=== PATIENT | female | born 1950 | race Caucasian/White ===

== ENCOUNTER → 2017-02-19 | Outpatient (CLI) | payer OTHER ==
[2016-07-21 21:11] VITALS: BP 125/70
[2017-02-19 11:07] LABS: BASOPHILS # (AUTO) 0.1 X10^3/uL (0.0-0.1); BASOPHILS % (AUTO) 1.2 % (0.2-1.0); EOSINOPHILS # (AUTO) 0.1 x10^3/uL (0.0-0.2); EOSINOPHILS % (AUTO) 1.3 % (0.9-2.9); HEMATOCRIT 41.5 % (36.0-47.0); HEMOGLOBIN 13.9 g/dL (12.0-16.0); LYMPHOCYTES # (AUTO) 2.5 X10^3/uL (1.3-2.9); LYMPHOCYTES % (AUTO) 26.2 % (21.0-51.0); MEAN CORPUSCULAR HEMOGLOBIN 29.5 pg (27.0-34.0); MEAN CORPUSCULAR HGB CONC 33.4 g/dL (33.0-35.0); MEAN CORPUSCULAR VOLUME 88.5 fL (80.0-100.0); MEAN PLATELET VOLUME 8.4 fL (7.4-11.0); MONOCYTES # (AUTO) 0.8 x10^3/uL (0.3-0.8); MONOCYTES % (AUTO) 8.2 % (0.0-13.0); NEUTROPHILS # (AUTO) 6.1 x10^3/uL (2.2-4.8); NEUTROPHILS % (AUTO) 63.1 % (42.0-75.0); PLATELET COUNT 295 X10^3/uL (150.0-450.0); RED BLOOD COUNT 4.69 X10^6/uL (3.5-5.4); RED CELL DISTRIBUTION WIDTH 14.1 % (11.6-16.5); WHITE BLOOD COUNT 9.7 X10^3/uL (3.6-10.0)
[2017-02-19 11:27] LABS: CREATININE,URINE 134.68 mg/dL (29-226); MICROALBUMIN,URINE 14.5 mg/L
[2017-02-19 11:44] LABS: ERYTHROCYTE SEDIMENTATION RATE 10 MM/HOUR (0-20)
[2017-02-19 12:26] LABS: ALANINE AMINOTRANSFERASE 24 Units/L (12-78); ALBUMIN 3.8 g/dL (3.4-5.0); ALKALINE PHOSPHATASE 65 Units/L (46-116); ASPARTATE AMINO TRANSFERASE 26 Units/L (15-37); BLOOD UREA NITROGEN 20 mg/dL (7-18); CALCIUM 9.4 mg/dL (8.5-10.1); CARBON DIOXIDE 27.8 mmol/L (21-32); CHLORIDE 105 mmol/L (98-107); CHOL/HDL RATIO 3.4 (0.0-5.0); CHOLESTEROL 154 mg/dL (0-200); CREATININE 1.02 mg/dL (0.55-1.02); GLUCOSE 83 mg/dL (65-99); HDL CHOLESTEROL 45 mg/dL (40-60); SODIUM 143 mmol/L (136-145); TRIGLYCERIDES 83 mg/dL (0-150); TSH (3RD GENERATION) 3.315 uIU/mL (0.358-3.74); eGFR BLACK RACES > 60 (>60); eGFR NON BLACK RACES 58 (>60)
== END ==
LOC: LAB 10:34
PROVIDERS: ATTEND Nurse Practitioner Family
DX: Z12.11 Encounter for screening for malignant neoplasm of colon (principal); Z79.899 Other long term (current) drug therapy; E78.4 Other hyperlipidemia
CPT/HCPCS: 36415; 80053; 80061; 82043; 82270; 84443; 85025; 85652

== ENCOUNTER 2017-02-24 17:14 | Inpatient (IN) | payer OTHER ==
--- NOTE | 2017-02-24 17:40 | DR.GENAD ---
HPI - PCP Primary Care Physician: Danii Schroeder - Complaint/Symptoms Chief Complaint Doctors Comments: Patient admits pain and swelling of the right lower extremity with ambulation. She states that she walks to visit her mom several times a day usuallly. Denies trauma or injury. Chief Complaint:: pt is c/o left leg pain behind her knee that started yesterday. - Source History Provided: Patient - Mode of Arrival Mode of Arrival: Ambulatory - Timing Onset of Chief Complaint: 02/23/17 <HERB MADISON - Last Filed: 02/24/17 17:34> PMH - PMH Past Medical History: Yes Past Medical History: Anxiety, Arthritis, COPD, Hypertension Past Surgical History: Yes Surgical History: , Hysterectomy, Tonsillectomy - Family History History of Family Medical Conditions: Yes Family Medical History: Diabetes Mellitus, Cancer, Heart Failure, Hypertension - Social History Does patient currently use any type of tobacco product: Yes Have you used tobacco products in the last 12 months: Yes Type of Tobacco Use: Cigarettes Does any household member use tobacco: No Alcohol Use: None Do you use any recreational Drugs:: No Lives With: Family Lives Where: Home - infectious screening In the last 2 months have you had wt loss of >10#?: NO Have you had fever, night sweats or hemotysis?: No Have you traveled outside the country in the last 6 months?: No Isolation: Standard <HERB MADISON - Last Filed: 02/24/17 17:34> ROS - Review of Systems Constitutional: No Symptoms Reported Eyes: No Symptoms Reported ENTM: No Symptoms Reported Respiratoy: No Symptoms Reported Cardiovascular: No Symptoms Reported Gastrointestinal/Abdominal: No Symptoms Reported Genitourinary: No Symptoms Reported Neurological: No Symptoms Reported Musculoskeletal: Leg (pain) Integumentary: Change in Color Hematologic/Lymphatic: No Symptoms Reported Endocrine: No Symptoms Reported Psychiatric: No Symptoms Reported All Other Systems: Reviewed and Negative <HERB MADISON - Last Filed: 02/24/17 17:34> PE - General Limitations: No Limitations General Appearance: Alert, In No Apparent Distress - Head Head Exam: Normal Inspection, Atraumatic - Eyes Eye exam: Normal Appearance, PERRL, EOMI - ENT ENT Exam: Normal Exam, Normal Oropharynx External Ear Exam: Normal External Inspection TM/Canal Exam: Bilateral Normal Nose Exam: Normal Nose Exam Mouth Exam: Normal Inspection Throat Exam: Normal Inspection - Neck Neck Exam: Normal Inspection - Chest Chest Inspection: Normal Inspection - Respiratory Respiratory Exam: Normal Lung Sounds Bilat Respiratory Exam: Bilateral Clear to Auscultation - Cardiovascular Cardiovascular Exam: Regular Rate, Normal Rhythm - Abdominal Exam Abdominal Exam: Normal Inspection Abdominal Tenderness: negative: RUQ, RLQ, LUQ, LLQ, Epigastrium, Suprapubic, Diffuse, Mild, Moderate, Severe, Other - Extremities Extremities Exam: Normal Inspection, Full ROM - Back Back Exam: Normal Inspection - Neurologic Neurological Exam: Alert, Oriented X3, CN II-XII Intact - Psychiatric Psychiatric Exam: Normal Affect, Depressed - Skin Skin Exam: Warm, Dry. negative: Intact <HERB MADISON - Last Filed: 02/24/17 17:34> ROR - Labs Reviewed Result Diagrams: 02/24/17 17:40 - XRAY XRAY Interpreted by: Radiologist (left popliteal dvt) <Linsey Carroll - Last Filed: 02/24/17 19:34> - Labs Reviewed Laboratory: WBC 11.7 X10^3/uL (3.6-10.0) H 02/24/17 17:40 RBC 4.45 X10^6/uL (3.5-5.4) 02/24/17 17:40 Hgb 12.9 g/dL (12.0-16.0) 02/24/17 17:40 Hct 39.2 % (36.0-47.0) 02/24/17 17:40 MCV 88.2 fL (80.0-100.0) 02/24/17 17:40 MCH 29.0 pg (27.0-34.0) 02/24/17 17:40 MCHC 32.8 g/dL (33.0-35.0) L 02/24/17 17:40 RDW 13.7 % (11.6-16.5) 02/24/17 17:40 Plt Count 217 X10^3/uL (150.0-450.0) 02/24/17 17:40 MPV 8.4 fL (7.4-11.0) 02/24/17 17:40 Neut % 73.5 % (42.0-75.0) 02/24/17 17:40 Lymph % 17.9 % (21.0-51.0) L 02/24/17 17:40 Pike % 6.8 % (0.0-13.0) 02/24/17 17:40 Eos % 1.2 % (0.9-2.9) 02/24/17 17:40 Baso % 0.6 % (0.2-1.0) 02/24/17 17:40 Neut # 8.6 x10^3/uL (2.2-4.8) H 02/24/17 17:40 Lymph # 2.1 X10^3/uL (1.3-2.9) 02/24/17 17:40 Pike # 0.8 x10^3/uL (0.3-0.8) 02/24/17 17:40 Eos # 0.1 x10^3/uL (0.0-0.2) 02/24/17 17:40 Baso # 0.1 X10^3/uL (0.0-0.1) 02/24/17 17:40 Absolute Nucleated RBC 0.0 /100WBC 02/24/17 17:40 C-Reactive Protein 37.40 mg/L (0-3.0) H 02/24/17 17:40 (Linsey Carroll) <HERB MADISON - Last Filed: 02/24/17 17:34> <Linsey Carroll - Last Filed: 02/24/17 19:34> - Diagnosis Discharge Problem: Deep venous thrombosis of left popliteal vein Qualifiers: Chronicity: acute Qualified Code(s): I82.432 - Acute embolism and thrombosis of left popliteal vein - Discharge Plan Disposition: ADMITTED INPATIENT Condition: Stable
[2017-02-24 18:05] LABS: BASOPHILS # (AUTO) 0.1 X10^3/uL (0.0-0.1); BASOPHILS % (AUTO) 0.6 % (0.2-1.0); EOSINOPHILS # (AUTO) 0.1 x10^3/uL (0.0-0.2); EOSINOPHILS % (AUTO) 1.2 % (0.9-2.9); HEMATOCRIT 39.2 % (36.0-47.0); HEMOGLOBIN 12.9 g/dL (12.0-16.0); LYMPHOCYTES # (AUTO) 2.1 X10^3/uL (1.3-2.9); LYMPHOCYTES % (AUTO) 17.9 % (21.0-51.0); MEAN CORPUSCULAR HGB CONC 32.8 g/dL (33.0-35.0); MEAN CORPUSCULAR VOLUME 88.2 fL (80.0-100.0); MEAN PLATELET VOLUME 8.4 fL (7.4-11.0); MONOCYTES # (AUTO) 0.8 x10^3/uL (0.3-0.8); MONOCYTES % (AUTO) 6.8 % (0.0-13.0); NEUTROPHILS # (AUTO) 8.6 x10^3/uL (2.2-4.8); NEUTROPHILS % (AUTO) 73.5 % (42.0-75.0); PLATELET COUNT 217 X10^3/uL (150.0-450.0); RED BLOOD COUNT 4.45 X10^6/uL (3.5-5.4); RED CELL DISTRIBUTION WIDTH 13.7 % (11.6-16.5); WHITE BLOOD COUNT 11.7 X10^3/uL (3.6-10.0)
--- NOTE | 2017-02-24 18:32 | VAS ---
HISTORY: Leg pain and swelling Study: Venous Doppler study left leg Comparison: None TECHNIQUE: Multiple ambriz scale and color flow Doppler images of the deep venous system were obtaine d of the left lower extremity. FINDINGS: The deep venous system of the left lower extremity was evaluated from the level of the common femora l vein through the popliteal vein. The left common femoral vein is patent. The proximal superficial femoral vein is patent and there is echogenic thrombus in the distal left superficial femoral vein extending into the popliteal vein which is noncompressible and shows no color flow or Doppler signal . IMPRESSION: Acute thrombus in the distal left superficial femoral and popliteal veins. Reported By:
[2017-02-24] MEDS: LOVENOX INJ 80 MG SYR SC SCH ×2 (18:57→20:55)
[2017-02-24 20:53] VITALS: BMI 27.2
[2017-02-25] MEDS ORDERED: [UNRECOGNIZED DRUG - OTHER] PO PRN (08:16)
[2017-02-25] MEDS ORDERED: [UNRECOGNIZED DRUG - OTHER] PO SCH (09:00)
[2017-02-25] MEDS: FIORICET TAB PO SCH ×2 (09:01→21:53)
[2017-02-25] MEDS: NEURONTIN TAB 600 MG PO SCH ×3 (09:01→22:04)
[2017-02-25] MEDS: LOPRESSOR TAB 50 MG PO SCH ×2 (09:01→22:05)
[2017-02-25] MEDS: ZESTRIL TAB 10 MG PO SCH (09:02)
[2017-02-25] MEDS: LOVENOX INJ 80 MG SYR SC SCH ×2 (09:02→22:05)
[2017-02-25 09:04] LABS: BASOPHILS # (AUTO) 0.1 X10^3/uL (0.0-0.1); BASOPHILS % (AUTO) 0.6 % (0.2-1.0); EOSINOPHILS # (AUTO) 0.3 x10^3/uL (0.0-0.2); EOSINOPHILS % (AUTO) 2.8 % (0.9-2.9); HEMATOCRIT 40.2 % (36.0-47.0); HEMOGLOBIN 13.2 g/dL (12.0-16.0); LYMPHOCYTES # (AUTO) 2.5 X10^3/uL (1.3-2.9); LYMPHOCYTES % (AUTO) 22.4 % (21.0-51.0); MEAN CORPUSCULAR HEMOGLOBIN 28.9 pg (27.0-34.0); MEAN CORPUSCULAR HGB CONC 32.9 g/dL (33.0-35.0); MEAN PLATELET VOLUME 8.8 fL (7.4-11.0); MONOCYTES % (AUTO) 8.8 % (0.0-13.0); NEUTROPHILS # (AUTO) 7.2 x10^3/uL (2.2-4.8); NEUTROPHILS % (AUTO) 65.4 % (42.0-75.0); PLATELET COUNT 224 X10^3/uL (150.0-450.0); RED BLOOD COUNT 4.57 X10^6/uL (3.5-5.4); RED CELL DISTRIBUTION WIDTH 13.7 % (11.6-16.5); WHITE BLOOD COUNT 11.1 X10^3/uL (3.6-10.0)
[2017-02-25 09:53] LABS: ALANINE AMINOTRANSFERASE 24 Units/L (12-78); ALBUMIN 3.4 g/dL (3.4-5.0); ALKALINE PHOSPHATASE 62 Units/L (46-116); ASPARTATE AMINO TRANSFERASE 26 Units/L (15-37); BLOOD UREA NITROGEN 21 mg/dL (7-18); CALCIUM 9.4 mg/dL (8.5-10.1); CARBON DIOXIDE 29.6 mmol/L (21-32); CHLORIDE 105 mmol/L (98-107); CREATININE 0.95 mg/dL (0.55-1.02); GLUCOSE 80 mg/dL (65-99); SODIUM 140 mmol/L (136-145); TOTAL PROTEIN 7.7 g/dL (6.4-8.2); eGFR BLACK RACES > 60 (>60); eGFR NON BLACK RACES > 60 (>60)
[2017-02-25] MEDS ORDERED: [UNRECOGNIZED DRUG - OTHER] PO SCH (11:30)
--- NOTE | 2017-02-25 14:15 | DR.H&P ---
H&P - History & Physical for Day of: H&P Date: 02/25/17 - Chief Complaint Chief Complaint: LEFT LOWER EXTREMITY PAIN AND SWELLING, HX NEW DVT - Allergies Allergies/Adverse Reactions: Allergies Allergy/AdvReac Type Severity Reaction Status Date / Time Codeine Allergy Verified 01/10/13 19:52 - History of Present Illness History of Present Illness: ADMIT FROM ER WITH CO LLE, US REVEALED DVT TO LLE - Past Medical History Past Medical History: Anxiety, Arthritis, COPD, Hypertension - Past Surgical History Surgical History: , Hysterectomy, Tonsillectomy - Family History Family Medical History: Diabetes Mellitus, Hypertension - Social History Does patient currently use any type of tobacco product: Yes Have you used tobacco products in the last 12 months: Yes Type of Tobacco Use: Cigarettes Does any household member use tobacco: No Alcohol Use: None Drug Use: None - Medications Home Medications: Alprazolam [Xanax] 0.25 mg PO BIDWM 02/24/17 [History Confirmed 02/24/17] Alprazolam [Xanax] 0.5 mg PO HS 02/24/17 [History Confirmed 02/24/17] Atorvastatin Calcium [Lipitor Tab 20 mg] 20 mg PO HS 02/24/17 [History Confirmed 02/24/17] Oixsnpoelv-Oyqfvknimldil-Zmmop [Fioricet 50-300-40 mg] 1 cap PO BID PRN [History Confirmed 02/24/17] Cyclobenzaprine HCl [Flexeril] 2.5 - 5 mg PO HS PRN 02/24/17 [History Confirmed 02/24/17] Dicyclomine HCl [Bentyl tab 20 mg] 20 mg PO AC 02/24/17 [History Confirmed 02/24] Fenofibrate [Fenofibrate 160 mg] 160 mg PO HS 02/24/17 [History Confirmed ] Gabapentin [Neurontin Tab 600 mg] 600 mg PO TID 02/24/17 [History Confirmed ] Hydrocodone-Acetaminophen [Lortab 10-325 mg] 1 tab PO TID PRN 02/24/17 [History Confirmed 02/24/17] Lisinopril [ZESTRIL *] 10 mg PO DAILY 02/24/17 [History Confirmed 02/24/17] Metoprolol Tartrate [Lopressor tab 100 mg] 100 mg PO BID 02/24/17 [History Confirmed 02/24/17] - Review of Systems Constitutional: No Symptoms Reported Eyes: No Symptoms Reported ENT: No Symptoms Reported Respiratory: No Symptoms Reported Cardiovascular: No Symptoms Reported Gastrointestinal: No Symptoms Reported Genitourinary: No Symptoms Reported Musculoskeletal: Leg Pain Skin: No Symptoms Reported Neurological: No Symptoms Reported - Physical Exam Vital Signs: Temperature 98.3 F Pulse Rate [Left Radial] 75 Respiratory Rate 18 Blood Pressure [Left Arm] 86/50 O2 Sat by Pulse Oximetry 96 Oriented: Normal Eyes: Normal Ear: Normal Nose: Normal Throat: Normal Respiratory: RLL Exp. Wheeze, LLL Exp. Wheeze Cardiovascular: Normal : Normal Auscultation: Bowel Sounds: Normal Palpation: Normal Tenderness: Normal Skin: Normal, Red (LLE) Musculoskeletal: Swelling (LLE), Tender Mood Description: Calm Speech Pattern: Clear, Appropriate - Assessment/Plan (1) Left leg DVT Qualifiers: Affected thrombotic vein of extremity: A Chronicity: C Status: Acute Plan: ADMIT, ANTI COAG THERAPY. LABS, PAIN CONTROL, PHLEBTITIS MANAGEMENT (2) Hypertension Qualifiers: Hypertension type: H Status: Acute (3) Hyperlipidemia Qualifiers: Hyperlipidemia type: H Status: Acute
[2017-02-25] MEDS: BENTYL CAP 10 MG PO SCH ×2 (14:39→16:08)
[2017-02-25] MEDS: NORCO 10/325 TAB PO PRN (16:44)
[2017-02-25] MEDS: XANAX PO SCH ×2 (16:44→22:05)
[2017-02-25] MEDS: LIPITOR TAB 20 MG PO SCH (22:04)
[2017-02-25] MEDS: TRICOR TAB 160 MG PO SCH (22:04)
[2017-02-26] MEDS: BENTYL CAP 10 MG PO SCH ×3 (05:50→16:13)
[2017-02-26] MEDS: NEURONTIN TAB 600 MG PO SCH ×3 (05:51→22:08)
[2017-02-26] MEDS ORDERED: NS 100 ML IV 100 ML IV ONE (06:17)
[2017-02-26 06:36] LABS: BASOPHILS # (AUTO) 0.1 X10^3/uL (0.0-0.1); BASOPHILS % (AUTO) 0.7 % (0.2-1.0); EOSINOPHILS # (AUTO) 0.3 x10^3/uL (0.0-0.2); EOSINOPHILS % (AUTO) 2.9 % (0.9-2.9); LYMPHOCYTES # (AUTO) 2.6 X10^3/uL (1.3-2.9); LYMPHOCYTES % (AUTO) 25.2 % (21.0-51.0); MEAN CORPUSCULAR HEMOGLOBIN 29.3 pg (27.0-34.0); MEAN CORPUSCULAR HGB CONC 33.4 g/dL (33.0-35.0); MEAN CORPUSCULAR VOLUME 87.9 fL (80.0-100.0); MEAN PLATELET VOLUME 8.7 fL (7.4-11.0); MONOCYTES # (AUTO) 0.9 x10^3/uL (0.3-0.8); MONOCYTES % (AUTO) 8.9 % (0.0-13.0); NEUTROPHILS # (AUTO) 6.4 x10^3/uL (2.2-4.8); NEUTROPHILS % (AUTO) 62.3 % (42.0-75.0); PLATELET COUNT 238 X10^3/uL (150.0-450.0); RED BLOOD COUNT 4.77 X10^6/uL (3.5-5.4); RED CELL DISTRIBUTION WIDTH 13.8 % (11.6-16.5); WHITE BLOOD COUNT 10.3 X10^3/uL (3.6-10.0)
[2017-02-26 06:49] LABS: ALANINE AMINOTRANSFERASE 26 Units/L (12-78); ALBUMIN 3.7 g/dL (3.4-5.0); ALKALINE PHOSPHATASE 69 Units/L (46-116); ASPARTATE AMINO TRANSFERASE 29 Units/L (15-37); BLOOD UREA NITROGEN 19 mg/dL (7-18); CALCIUM 9.7 mg/dL (8.5-10.1); CARBON DIOXIDE 27.4 mmol/L (21-32); CHLORIDE 104 mmol/L (98-107); CHOL/HDL RATIO 4.1 (0.0-5.0); CHOLESTEROL 145 mg/dL (0-200); CREATININE 1.01 mg/dL (0.55-1.02); GLUCOSE 74 mg/dL (65-99); HDL CHOLESTEROL 35 mg/dL (40-60); SODIUM 141 mmol/L (136-145); TOTAL PROTEIN 8.3 g/dL (6.4-8.2); TRIGLYCERIDES 148 mg/dL (0-150); eGFR BLACK RACES > 60 (>60); eGFR NON BLACK RACES 59 (>60)
[2017-02-26 07:08] LABS: ERYTHROCYTE SEDIMENTATION RATE 23 MM/HOUR (0-20)
--- NOTE | 2017-02-26 07:28 | CT ---
CT chest with contrast Indication: Shortness of breath with DVT Comparison: none available Technique: Multiple axial images of the chest were obtained from the thoracic inlet to the upper abd omen after the administration of IV contrast. Coronal and sagittal reformatted images were also prov ided. Radiation dose reduction techniques were performed utilizing adjustment for MA/kVP based on patient body size. Findings: The thyroid gland is normal. Heart size is normal without pericardial effusion. The thoracic aorta i s normal in caliber with scattered calcified atherosclerotic disease. Mild coronary artery atheroscl erotic disease is noted. The pulmonary artery is normal in caliber. No filling defect identified wit hin the central pulmonary arteries . However, there are filling defects noted within the subsegmenta l branches of the right upper lobe on axial image 24, right lower lobe on axial images 37-38, left l ower lobe on axial image 44. There is mild diffuse peribronchial thickening without peribronchial consolidation suggesting chroni c bronchitis. No focal airspace consolidation, pleural effusion or pneumothorax. No enlarged mediast inal or hilar lymphadenopathy. There is questionable thickening of the hepatic flexure of the colon which may represent underdisten tion; however a mucosal based neoplasm is not excluded. Punctate nonobstructing stone is suspected w ithin the midpole of the right kidney. No acute osseous abnormality. Impression: 1.Bilateral subsegmental pulmonary thromboemboli, there is no evidence of pulmonary arterial dilatat ion or right ventricular heart strain. 2. CT findings consistent with chronic bronchitis without evidence of acute airspace disease. 3. Mild thickening of the hepatic flexure of the colon potentially is secondary to underdistention; however correlation with colonoscopy if not already recently performed is recommended to exclude a m ucosal based neoplasm. 4. Suspected punctate nonobstructing stone within the midpole of the right kidney. Reported By:
[2017-02-26] MEDS: FIORICET TAB PO SCH ×2 (08:12→20:36)
[2017-02-26] MEDS: XANAX PO SCH ×3 (08:12→20:36)
[2017-02-26] MEDS: ZESTRIL TAB 10 MG PO SCH (08:13)
[2017-02-26] MEDS: LOVENOX INJ 80 MG SYR SC SCH ×2 (08:13→20:34)
[2017-02-26] MEDS: LOPRESSOR TAB 50 MG PO SCH ×2 (08:13→20:36)
[2017-02-26] MEDS: NICODERM PATCH 21 MG/24 HR TD SCH (10:46)
--- NOTE | 2017-02-26 13:22 | PCM.PROG ---
Progress Note - Progress Note for Day of Date: 02/25/17 - Subjective Subjective: RESTING QUIETLY, NO COMPLAINTS. DISCUSSED NEED FOR CTA CHEST, CONTINUE LOVENOX - Past Medical Family Social History Allergies: Allergies Codeine Allergy (Verified 01/10/13 19:52) - Review of Systems ROS: No change since H&P - Vital Signs and I&O's Vital Signs: Temperature 98.2 F Pulse Rate [Left Radial] 86 Respiratory Rate 20 Blood Pressure [Right Arm] 114/56 Blood Pressure [Left Arm] 103/57 O2 Sat by Pulse Oximetry 92 Intake and Output: Intake & Output 02/24/17 02/25/17 02/26/17 02/27/17 11:59 11:59 11:59 11:59 Intake Total 580 3640 Balance 580 3640 - Physical Exam Oriented: Normal Eyes: Normal Ear: Normal Nose: Normal Throat: Normal Cardiovascular: Normal : Normal Auscultation: Bowel Sounds: Normal Tenderness: Normal Skin: Normal, Red (LLE) Musculoskeletal: Swelling (LLE), Tender Mood Description: Calm Speech Pattern: Clear, Appropriate - Laboratory and Diagnostics Result Diagrams: 02/26/17 05:35 02/26/17 05:35 Labs: Laboratory WBC 10.3 X10^3/uL (3.6-10.0) H 02/26/17 05:35 RBC 4.77 X10^6/uL (3.5-5.4) 02/26/17 05:35 Hgb 14.0 g/dL (12.0-16.0) 02/26/17 05:35 Hct 42.0 % (36.0-47.0) 02/26/17 05:35 MCV 87.9 fL (80.0-100.0) 02/26/17 05:35 MCH 29.3 pg (27.0-34.0) 02/26/17 05:35 MCHC 33.4 g/dL (33.0-35.0) 02/26/17 05:35 RDW 13.8 % (11.6-16.5) 02/26/17 05:35 Plt Count 238 X10^3/uL (150.0-450.0) 02/26/17 05:35 MPV 8.7 fL (7.4-11.0) 02/26/17 05:35 Neut % 62.3 % (42.0-75.0) 02/26/17 05:35 Lymph % 25.2 % (21.0-51.0) 02/26/17 05:35 [place] % 8.9 % (0.0-13.0) 02/26/17 05:35 Eos % 2.9 % (0.9-2.9) 02/26/17 05:35 Baso % 0.7 % (0.2-1.0) 02/26/17 05:35 Neut # 6.4 x10^3/uL (2.2-4.8) H 02/26/17 05:35 Lymph # 2.6 X10^3/uL (1.3-2.9) 02/26/17 05:35 [place] # 0.9 x10^3/uL (0.3-0.8) H 02/26/17 05:35 Eos # 0.3 x10^3/uL (0.0-0.2) H 02/26/17 05:35 Baso # 0.1 X10^3/uL (0.0-0.1) 02/26/17 05:35 Absolute Nucleated RBC 0.0 /100WBC 02/26/17 05:35 ESR 23 MM/HOUR (0-20) H 02/26/17 05:35 D-Dimer 4030 ng/mL (0-400) H* 02/24/17 17:40 Sodium 141 mmol/L (136-145) 02/26/17 05:35 Corrected Sodium TNP 02/26/17 05:35 Potassium 3.9 mmol/L (3.5-5.1) 02/26/17 05:35 Chloride 104 mmol/L (98-107) 02/26/17 05:35 Carbon Dioxide 27.4 mmol/L (21-32) 02/26/17 05:35 BUN 19 mg/dL (7-18) H 02/26/17 05:35 Creatinine 1.01 mg/dL (0.55-1.02) 02/26/17 05:35 Est GFR (MDRD) Af Amer > 60 (>60) 02/26/17 05:35 Est GFR (MDRD) Non-Af 59 (>60) 02/26/17 05:35 Glucose 74 mg/dL (65-99) 02/26/17 05:35 Calcium 9.7 mg/dL (8.5-10.1) 02/26/17 05:35 Corrected Calcium TNP 02/26/17 05:35 Total Bilirubin 0.50 mg/dL (0.2-1.0) 02/26/17 05:35 AST 29 Units/L (15-37) 02/26/17 05:35 ALT 26 Units/L (12-78) 02/26/17 05:35 Alkaline Phosphatase 69 Units/L (46-116) 02/26/17 05:35 C-Reactive Protein 59.90 mg/L (0-3.0) H 02/26/17 05:35 Total Protein 8.3 g/dL (6.4-8.2) H 02/26/17 05:35 Albumin 3.7 g/dL (3.4-5.0) 02/26/17 05:35 Globulin 4.6 g/dL (2.5-4.5) H 02/26/17 05:35 Albumin/Globulin Ratio 0.8 Ratio (1.1-2.1) L 02/26/17 05:35 Triglycerides 148 mg/dL (0-150) 02/26/17 05:35 Cholesterol 145 mg/dL (0-200) 02/26/17 05:35 LDL Cholesterol, Calc 80 mg/dL (0-100) 02/26/17 05:35 HDL Cholesterol 35 mg/dL (40-60) L 02/26/17 05:35 Cholesterol/HDL Ratio 4.1 (0.0-5.0) 02/26/17 05:35 - Plan (1) Left leg DVT Status: Acute Qualifiers: Affected thrombotic vein of extremity: A Chronicity: C Plan: ANTI COAG THERAPY. LABS, PAIN CONTROL, PHLEBTITIS MANAGEMENT (2) Hypertension Status: Acute Qualifiers: Hypertension type: H (3) Hyperlipidemia Status: Acute Qualifiers: Hyperlipidemia type: H (4) SOB (shortness of breath) Status: Acute Plan: MILD, EXERTIONAL. HX COPD, HX NEW DVT, PLAN TO OBTAIN CTA CHEST
[2017-02-26] MEDS: NORCO 10/325 TAB PO PRN (20:35)
[2017-02-26] MEDS: TRICOR TAB 160 MG PO SCH (20:35)
[2017-02-26] MEDS: LIPITOR TAB 20 MG PO SCH (20:36)
[2017-02-27] MEDS: NEURONTIN TAB 600 MG PO SCH ×2 (05:16→12:20)
[2017-02-27 05:52] LABS: BASOPHILS # (AUTO) 0.1 X10^3/uL (0.0-0.1); BASOPHILS % (AUTO) 1.1 % (0.2-1.0); EOSINOPHILS # (AUTO) 0.3 x10^3/uL (0.0-0.2); EOSINOPHILS % (AUTO) 2.8 % (0.9-2.9); HEMATOCRIT 39.8 % (36.0-47.0); HEMOGLOBIN 13.3 g/dL (12.0-16.0); LYMPHOCYTES # (AUTO) 3.1 X10^3/uL (1.3-2.9); LYMPHOCYTES % (AUTO) 29.3 % (21.0-51.0); MEAN CORPUSCULAR HEMOGLOBIN 29.2 pg (27.0-34.0); MEAN CORPUSCULAR HGB CONC 33.5 g/dL (33.0-35.0); MEAN CORPUSCULAR VOLUME 87.2 fL (80.0-100.0); MEAN PLATELET VOLUME 8.8 fL (7.4-11.0); MONOCYTES # (AUTO) 1.1 x10^3/uL (0.3-0.8); MONOCYTES % (AUTO) 10.7 % (0.0-13.0); NEUTROPHILS # (AUTO) 5.9 x10^3/uL (2.2-4.8); NEUTROPHILS % (AUTO) 56.1 % (42.0-75.0); PLATELET COUNT 238 X10^3/uL (150.0-450.0); RED BLOOD COUNT 4.56 X10^6/uL (3.5-5.4); RED CELL DISTRIBUTION WIDTH 13.2 % (11.6-16.5); WHITE BLOOD COUNT 10.6 X10^3/uL (3.6-10.0)
[2017-02-27] MEDS: BENTYL CAP 10 MG PO SCH ×2 (05:54→12:20)
[2017-02-27 05:56] LABS: ALANINE AMINOTRANSFERASE 27 Units/L (12-78); ALBUMIN 3.4 g/dL (3.4-5.0); ALKALINE PHOSPHATASE 64 Units/L (46-116); ASPARTATE AMINO TRANSFERASE 39 Units/L (15-37); BLOOD UREA NITROGEN 18 mg/dL (7-18); CALCIUM 9.7 mg/dL (8.5-10.1); CARBON DIOXIDE 29.7 mmol/L (21-32); CHLORIDE 106 mmol/L (98-107); CREATININE 0.99 mg/dL (0.55-1.02); GLUCOSE 92 mg/dL (65-99); SODIUM 143 mmol/L (136-145); TOTAL PROTEIN 7.9 g/dL (6.4-8.2); eGFR BLACK RACES > 60 (>60); eGFR NON BLACK RACES > 60 (>60)
[2017-02-27] MEDS: XANAX PO SCH (06:13)
[2017-02-27] MEDS: LOPRESSOR TAB 50 MG PO SCH (08:47)
[2017-02-27] MEDS: FIORICET TAB PO SCH (08:48)
[2017-02-27] MEDS: LOVENOX INJ 80 MG SYR SC SCH (08:48)
[2017-02-27] MEDS: ZESTRIL TAB 10 MG PO SCH ×2 (08:48→12:20)
[2017-02-27] MEDS: NICODERM PATCH 21 MG/24 HR TD SCH (08:48)
[2017-02-27] MEDS ORDERED: ELIQUIS PO SCH (09:45)
[2017-02-27 12:27] VITALS: BP 132/92
[2017-03-01 06:16] LABS: ANTI-NUCLEAR ANTIBODY TEST None Detected (None Detected)
[2017-03-04 06:36] LABS: APC RESISTANCE 3.62 (>=2.00)
[2017-03-04 06:37] LABS: ANTITHROMBIN III ACTIVITY 90 % (76-128); PROTEIN C ACTIVITY 198 % (83-168)
[2017-03-04 06:38] LABS: PROTHROMBIN G20210A Negative
[2017-03-04 07:15] LABS: THROMBIN TIME 18.6
== END 2017-02-27 14:15 | disposition home or self-care (01) | DRG 301 ==
LOC: ER 17:19 → MED/SURG 18:49 → OBSVTOIN 02-26 09:00
PROVIDERS: ADMIT Internal Medicine; ATTEND Internal Medicine
DX: I82.432 Acute embolism and thrombosis of left popliteal vein (principal); M79.661 Pain in right lower leg; R79.82 Elevated C-reactive protein (CRP); R70.0 Elevated erythrocyte sedimentation rate; M13.89 Other specified arthritis, multiple sites; E78.2 Mixed hyperlipidemia; R06.02 Shortness of breath; D72.828 Other elevated white blood cell count
CPT/HCPCS: 36415; 71260; 80053; 80061; 81240; 82615; 85025; 85300; 85303; 85306; 85307; 85378; 85597; 85610; 85613; 85635; 85652; 85670; 85730; 85732; 86140; 86308; 93005; 93010; 93971; 96365; 96372; 99284; A4216; A4222; G0378; J1650

== ENCOUNTER → 2017-09-25 | Outpatient (CLI) | payer OTHER ==
[2017-09-25 09:11] LABS: CREATININE 0.96 mg/dL (0.55-1.02)
--- NOTE | 2017-09-25 15:56 | CT ---
HISTORY: Hypertension, COPD, shortness of breath Study: CT chest with contrast Comparison: February 26, 2017 Technique: Multiple axial images of the chest were obtained from the thoracic inlet to the upper abdo men with the administration of IV contrast. Dose reduction techniques including automated exposure co ntrol (AEC) and adjustment of mA kV were utilized. Findings: The mediastinum does not demonstrate significant pathological lymphadenopathy. There is no pericardi al effusion observed. The thoracic aorta is normal in its contour without evidence for aneurysmal di latation. Biapical scarring/pleural thickening are noted. Scattered areas of atelectasis and/or scar ring are again seen within both lungs and are most pronounced within the right middle and right lower lobes. Otherwise no CT evidence of focal consolidation, pneumothorax, or pleural effusion is identif ied. Images again demonstrate questionable mild wall thickening of the colon in the region of the hep atic flexure similar to prior study. If not already performed correlation with colonoscopy may be hel pful in further characterizing these findings. A small hiatal hernia is demonstrated. Degenerative ch anges of the visualized spine are noted. IMPRESSION: Chronic changes as discussed above. Questionable mild colonic wall thickening as noted above. Reported By:
--- NOTE | 2017-09-26 11:05 | VAS ---
HISTORY: History DVT in distal left superficial femoral and popliteal veins. Bilateral leg pain. Study: Bilateral lower extremity venous Doppler Comparison: February 24, 2017. TECHNIQUE: Real-time dynamic grayscale, color flow and complete spectral Doppler ultrasound examinat ion of the major deep venous structures were obtained of both lower extremities. FINDINGS: Right lower extremity: Real-time examination shows no evidence of thrombus within the common femoral , superficial femoral, or popliteal veins. There is normal compressibility throughout. Color flow claudia ging shows normal venous blood flow within the major vessels. Doppler examination shows normal venous waveforms with appropriate respiratory variation and augmentation. Left lower extremity: Real-time examination shows no evidence of thrombus within the common femoral, superficial femoral, or popliteal veins. There is normal compressibility throughout. Color flow imagi ng shows normal venous blood flow within the major vessels. Doppler examination shows normal venous w aveforms with appropriate respiratory variation and augmentation. IMPRESSION: 1. Normal bilateral lower extremity venous Doppler, without evidence of DVT. The previously noted th rombus within the distal left SFV and popliteal veins is no longer present. Reported By:
== END ==
LOC: RAD 08:25
PROVIDERS: ATTEND Nurse Practitioner Family
DX: J44.9 Chronic obstructive pulmonary disease, unspecified (principal); M25.50 Pain in unspecified joint
CPT/HCPCS: 36415; 71260; 82565; 84520; 93970; A4222

== ENCOUNTER 2025-01-06 11:49 | Inpatient (IN) ==
[2025-01-06] MEDS ORDERED: ROCEPHIN VIAL 1 GRAM IV SCH (12:00)
[2025-01-06] MEDS: PROTONIX INJ 40 MG VIAL IVP ONE (12:30)
[2025-01-06] MEDS: NS 1,000 ML IV 1,000 ML IV SCH (12:30)
[2025-01-06 13:33] LABS: BASOPHILS # (AUTO) 0.1 X10^3/uL (0.0-0.1); BASOPHILS % (AUTO) 1.1 % (0.2-1.0); EOSINOPHILS # (AUTO) 0.2 x10^3/uL (0.0-0.2); EOSINOPHILS % (AUTO) 2.4 % (0.9-2.9); HEMOGLOBIN 14.6 g/dL (12.0-16.0); LYMPHOCYTES # (AUTO) 1.6 X10^3/uL (1.3-2.9); LYMPHOCYTES % (AUTO) 17.7 % (21.0-51.0); MEAN CORPUSCULAR HEMOGLOBIN 29.1 pg (27.0-34.0); MEAN CORPUSCULAR HGB CONC 33.2 g/dL (33.0-35.0); MEAN CORPUSCULAR VOLUME 87.7 fL (80.0-100.0); MEAN PLATELET VOLUME 8.4 fL (7.4-11.0); MONOCYTES # (AUTO) 0.8 x10^3/uL (0.3-0.8); MONOCYTES % (AUTO) 8.7 % (0.0-13.0); NEUTROPHILS # (AUTO) 6.1 x10^3/uL (2.2-4.8); NEUTROPHILS % (AUTO) 70.1 % (42.0-75.0); PLATELET COUNT 339 X10^3/uL (150.0-450.0); RED BLOOD COUNT 5.02 X10^6/uL (3.5-5.4); RED CELL DISTRIBUTION WIDTH 14.1 % (11.6-16.5); WHITE BLOOD COUNT 8.8 X10^3/uL (3.6-10.0)
[2025-01-06 13:47] LABS: ALANINE AMINOTRANSFERASE 11 Units/L (12-78); ALBUMIN 3.5 g/dL (3.4-5.0); ALKALINE PHOSPHATASE 94 Units/L (46-116); ASPARTATE AMINO TRANSFERASE 23 Units/L (15-37); BLOOD UREA NITROGEN 16 mg/dL (7-18); CARBON DIOXIDE 27.5 mmol/L (21-32); CHLORIDE 103 mmol/L (98-107); COR NA(FOR HYPERGLY) 141 mmol/L (136-145); CREATININE 0.78 mg/dL (0.55-1.02); GLUCOSE 111 mg/dL (65-99); POTASSIUM 3.7 mmol/L (3.5-5.1); SODIUM 141 mmol/L (136-145); TOTAL PROTEIN 8.3 g/dL (6.4-8.2); eGFR NON BLACK RACES > 60 (>60)
[2025-01-06] MEDS: ROCEPHIN VIAL 1 GRAM 1 G in NS 100 ML IV 100 ML IV SCH (14:00)
[2025-01-06 14:57] LABS: ABG BASE EXCESS 2.5 mmol/L (-2.0-2.0); ABG HCO3 26.3 mmol/L (22-26)
[2025-01-06 14:58] LABS: ABG ALLEN TEST POS
[2025-01-06 15:03] LABS: TSH (3RD GENERATION) 0.268 uIU/mL (0.358-3.74)
[2025-01-06 15:13] VITALS: BMI 24.5
--- NOTE | 2025-01-06 15:49 | CT ---
EXAMINATION:BRAIN W/O CONHISTORY:AMS, UTI;COMPARISON:None.TECHNIQUE:Contiguous noncontrast axial CT images of the brain. Images reviewed in the axial imaging plane with reformatted sagittal and coronal images.The above CT scan was done with automated exposure control and the mA and kV was adjusted to obtain quality images according to patient size.FINDINGS:No evidence of acute intracranial hemorrhage, mass effect, or midline shift. Subtle areas of decreased density deep white matter adjacent to the lateral ventricles and centrum semiovale regions bilaterally without associated mass effect. Consider chronic ischemic white matter changes from small vessel disease or other cause of gliosis. The ventricles are normal size and shape. The calvarium appears intact.Mucosal thickening along the amaya of the right maxillary sinus. 1.4 by 1.3 x 0.9 cm mass of mixed density including calcifications in the right inferior maxillary sinus.IMPRESSION:No evidence of acute intracranial hemorrhage or mass effect.Probable chronic deep white matter changes within both cerebral hemispheres. Recommend follow-up MRI of the brain if this is of continued clinical concern.Right maxillary sinus disease.THIS IS AN ELECTRONICALLY VERIFIED FINAL REPORT01/06/2025 3:46 PM - Electronically signed by Ashleigh Jay MD
[2025-01-06] MEDS: PROVENTIL NEB TX 0.083% 2.5MG/ 3ML NEB PRN (16:48)
[2025-01-06] MEDS: NORCO 10/325 TAB PO PRN (17:48)
--- NOTE | 2025-01-06 17:51 | DR.H&P ---
H&P History & Physical for Day of: H&P Date: 01/06/25 Chief Complaint Chief Complaint: CONFUSION, UTI, WEAKNESS History of Present Illness History of Present Illness: PT IS 74 WF, DIRECT ADMIT FROM DR PEREZ OFFICE WITH CONFUSION AND DIFFUSE WEAKNESS. PT HAS BEEN TREATED FOR A UTI AND UNCONTROLLED THYROID LEVELS RECENTLY, WITHIN THE PAST 3 WEEKS. SHE HAS NOT TAKEN MEDICATION PRESCRIBED AND HAVE INCREASED WEAKNESS, LETHARGY, AND INAPPROPRIATE RESPONSES. FAMILY IS CONCERNED PT HAS HAS A MINI STROKE OR HAS DEMENTIA. PT BEHAVIOR CHANGE HAS BEEN ACUTE. PT HAS PMH OF COPD, HTN, OA, TIFFANY, SPINAL DDD, HX PE AND DVT, AND HYPOTHYROIDISM. PT ADMITTED FOR TREATMENT OF ACUTE ILLNESS. Past Medical History Past Medical History: Anxiety, Arthritis, COPD, Dyslipidemia and Hypertension Past Surgical History Surgical History: , Hysterectomy and Tonsillectomy Family History Family Medical History: Diabetes Mellitus, Coronary Artery Disease and Hypertension Social History Does patient currently use any type of tobacco product: Yes Have you used tobacco products in the last 12 months: Yes Type of Tobacco Use: Cigarettes Does any household member use tobacco: No Alcohol Use: None Drug Use: None Medications Home Medications: Home Medications Medication Instructions Recorded Confirmed Type Fenofibrate [Fenofibrate 160 mg] 160 mg PO HS 02/24/17 01/06/25 History Metoprolol Tartrate [Lopressor tab 25 mg PO BID 02/24/17 01/06/25 History 100 mg] atorvastatin 20 mg tablet 20 mg PO HS 02/24/17 01/06/25 History hydrocodone 10 mg-acetaminophen 1 tab PO TID PRN Pain 02/24/17 01/06/25 History 325 mg tablet (Lortab) lisinopril 10 mg tablet 10 mg PO BID 02/24/17 01/06/25 History albuterol sulfate 90 mcg/actuation 2 puff inhalation Q4-6H PRN 10/31/24 01/06/25 History aerosol inhaler (Ventolin HFA) alprazolam 0.5 mg tablet 0.5 mg PO BID PRN 10/31/24 01/06/25 History aspirin 325 mg tablet,delayed 325 mg PO DAILY 10/31/24 01/06/25 History release fluticasone fur. 100 mcg-umeclid 1 ea inhalation QDAY 10/31/24 01/06/25 History 62.5 mcg-vilant 25 mcg inhalat.powder (Trelegy Ellipta) levothyroxine 137 mcg tablet 137 mcg PO QDAY 10/31/24 01/06/25 History montelukast 10 mg tablet 10 mg PO QDAY 10/31/24 01/06/25 History omeprazole 40 mg capsule,delayed 40 mg PO QDAY 10/31/24 01/06/25 History release Allergies Allergies Allergy/AdvReac Type Severity Reaction Status Date / Time codeine Allergy Verified 07/10/19 07:28 Labs 01/06/25 13:13 01/06/25 13:13 Labs: 01/06/25 14:00 Sputum - Expectorated Sputum - Final Laboratory WBC 8.8 X10^3/uL (3.6-10.0) 01/06/25 13:13 RBC 5.02 X10^6/uL (3.5-5.4) 01/06/25 13:13 Hgb 14.6 g/dL (12.0-16.0) 01/06/25 13:13 Hct 44.0 % (36.0-47.0) 01/06/25 13:13 MCV 87.7 fL (80.0-100.0) 01/06/25 13:13 MCH 29.1 pg (27.0-34.0) 01/06/25 13:13 MCHC 33.2 g/dL (33.0-35.0) 01/06/25 13:13 RDW 14.1 % (11.6-16.5) 01/06/25 13:13 Plt Count 339 X10^3/uL (150.0-450.0) 01/06/25 13:13 MPV 8.4 fL (7.4-11.0) 01/06/25 13:13 Neut % (Auto) 70.1 % (42.0-75.0) 01/06/25 13:13 Lymph % (Auto) 17.7 % (21.0-51.0) L 01/06/25 13:13 [place] % (Auto) 8.7 % (0.0-13.0) 01/06/25 13:13 Eos % (Auto) 2.4 % (0.9-2.9) 01/06/25 13:13 Baso % (Auto) 1.1 % (0.2-1.0) H 01/06/25 13:13 Neut # (Auto) 6.1 x10^3/uL (2.2-4.8) H 01/06/25 13:13 Lymph # (Auto) 1.6 X10^3/uL (1.3-2.9) 01/06/25 13:13 [place] # (Auto) 0.8 x10^3/uL (0.3-0.8) 01/06/25 13:13 Eos # (Auto) 0.2 x10^3/uL (0.0-0.2) 01/06/25 13:13 Baso # (Auto) 0.1 X10^3/uL (0.0-0.1) 01/06/25 13:13 Absolute Nucleated RBC 0.2 /100WBC 01/06/25 13:13 Sample Site Lr 01/06/25 14:11 ABG pH 7.460 (7.35-7.45) H 01/06/25 14:11 ABG pCO2 37.0 mmHg (35.0-45.0) 01/06/25 14:11 ABG pO2 48.0 mmHg (80.0-100.0) L* 01/06/25 14:11 ABG HCO3 26.3 mmol/L (22-26) H 01/06/25 14:11 ABG O2 Saturation 86.0 % (90-100) L 01/06/25 14:11 ABG Base Excess 2.5 mmol/L (-2.0-2.0) H 01/06/25 14:11 Elier Test Pos 01/06/25 14:11 A-a Gradient 55.0 mmHg 01/06/25 14:11 FiO2 21.0 01/06/25 14:11 Blood Gas Comments Pt wilman well cdn 01/06/25 14:11 Sodium 141 mmol/L (136-145) 01/06/25 13:13 Corrected Sodium 141 mmol/L (136-145) 01/06/25 13:13 Potassium 3.7 mmol/L (3.5-5.1) 01/06/25 13:13 Chloride 103 mmol/L (98-107) 01/06/25 13:13 Carbon Dioxide 27.5 mmol/L (21-32) 01/06/25 13:13 BUN 16 mg/dL (7-18) 01/06/25 13:13 Creatinine 0.78 mg/dL (0.55-1.02) 01/06/25 13:13 Est GFR (MDRD) Af Amer > 60 (>60) 01/06/25 13:13 Est GFR (MDRD) Non-Af > 60 (>60) 01/06/25 13:13 Glucose 111 mg/dL (65-99) H 01/06/25 13:13 Calcium 10.0 mg/dL (8.5-10.1) 01/06/25 13:13 Corrected Calcium TNP 01/06/25 13:13 Total Bilirubin 0.80 mg/dL (0.2-1.0) 01/06/25 13:13 AST 23 Units/L (15-37) 01/06/25 13:13 ALT 11 Units/L (12-78) L 01/06/25 13:13 Alkaline Phosphatase 94 Units/L (46-116) 01/06/25 13:13 Total Protein 8.3 g/dL (6.4-8.2) H 01/06/25 13:13 Albumin 3.5 g/dL (3.4-5.0) 01/06/25 13:13 Globulin 4.8 g/dL (2.5-4.5) H 01/06/25 13:13 Albumin/Globulin Ratio 0.7 Ratio (1.1-2.1) L 01/06/25 13:13 TSH 3rd Generation 0.268 uIU/mL (0.358-3.74) L 01/06/25 13:13 Review of Systems Constitutional: Weakness and Malaise Eyes: Redness (LEFT EYE) ENT: No Symptoms Reported Respiratory: Shortness of Breath and SOB with Excertion Cardiovascular: Palpitations Gastrointestinal: Other (APPETITE LOSS ) Genitourinary: Frequency and Incontinence Musculoskeletal: Back Pain Skin: No Symptoms Reported Neurological: Weakness and Confusion Physical Exam Vital Signs: Vital Signs Respiratory Rate 20 Blood Pressure 154/70 O2 Sat by Pulse Oximetry 86 Oriented: Person; negative Time or Place Eyes: Redness (LEFT) Nose: Normal Throat: Dry Respiratory: Diminished Throughout Cardiovascular: Normal; negative Edema Auscultation: Bowel Sounds: Normal Palpation: Normal Tenderness: Normal Skin: Decreased Turgur Musculoskeletal: Motor Deficit and Sensory Deficit Psychiatric: Anxiety Mood Description: Suspicious and Anxious Affect: Anxious Speech Pattern: Appropriate and Delayed Assessment/Plan (1) AMS (altered mental status): Status: Acute Plan: ADMIT, CT HEAD RO CVA IV ATBX FOR UTI, BC AND UC ON ADMISSION CXR, SUPPLEMENTAL O2 VERIFY AND RESUME HOME MEDICATIONS BP CONTROL, PT CONSULT CE AND EKG ON ADMISSION (2) SOB (shortness of breath): Status: Acute (3) Hypertension: Status: Acute (4) UTI (urinary tract infection): Status: Acute (5) COPD (chronic obstructive pulmonary disease): Status: Acute (6) Hypothyroid: Status: Acute
[2025-01-06] MEDS: PROTONIX INJ 40 MG VIAL ONE (18:23)
[2025-01-06 20:19] LABS: BILIRUBIN,URINE NEGATIVE (NEGATIVE); BLOOD/HEMOGLOBIN,URINE NEGATIVE (NEGATIVE); GLUCOSE, URINE NEGATIVE (NEGATIVE); KETONES,URINE NEGATIVE (NEGATIVE); LEUKOCYTE ESTERASE ,URINE 2+ (NEGATIVE); NITRITES,URINE NEGATIVE (NEGATIVE); PROTEIN,URINE 2+ (NEGATIVE); UROBILINOGEN,URINE NORMAL (NORMAL)
[2025-01-06 20:26] LABS: APPEARANCE,URINE CLEAR (CLEAR); COLOR,URINE YELLOW (YELLOW)
[2025-01-06] MEDS: TRICOR TAB 160 MG PO SCH (20:30)
[2025-01-06] MEDS: LOPRESSOR TAB 25 MG PO SCH (20:30)
[2025-01-06] MEDS: ZESTRIL TAB 10 MG PO SCH (20:30)
[2025-01-06 20:32] LABS: RBC,URINE 0-2 /HPF (0-3); SQUAMOUS EPITHELIAL CELL,UR MODERATE /HPF (NEGATIVE)
[2025-01-06 20:33] LABS: BACTERIA,URINE 1+ /HPF (NEGATIVE); RENAL EPITHELIAL CELLS,URINE FEW /HPF (NEGATIVE)
[2025-01-07 05:51] LABS: BASOPHILS # (AUTO) 0.1 X10^3/uL (0.0-0.1); EOSINOPHILS # (AUTO) 0.2 x10^3/uL (0.0-0.2); EOSINOPHILS % (AUTO) 2.4 % (0.9-2.9); HEMATOCRIT 40.7 % (36.0-47.0); HEMOGLOBIN 13.5 g/dL (12.0-16.0); LYMPHOCYTES # (AUTO) 2.2 X10^3/uL (1.3-2.9); LYMPHOCYTES % (AUTO) 26.8 % (21.0-51.0); MEAN CORPUSCULAR HEMOGLOBIN 28.9 pg (27.0-34.0); MEAN CORPUSCULAR HGB CONC 33.1 g/dL (33.0-35.0); MEAN CORPUSCULAR VOLUME 87.6 fL (80.0-100.0); MEAN PLATELET VOLUME 8.7 fL (7.4-11.0); MONOCYTES # (AUTO) 0.9 x10^3/uL (0.3-0.8); MONOCYTES % (AUTO) 10.9 % (0.0-13.0); NEUTROPHILS # (AUTO) 4.8 x10^3/uL (2.2-4.8); NEUTROPHILS % (AUTO) 58.9 % (42.0-75.0); PLATELET COUNT 326 X10^3/uL (150.0-450.0); RED BLOOD COUNT 4.65 X10^6/uL (3.5-5.4); RED CELL DISTRIBUTION WIDTH 14.2 % (11.6-16.5); WHITE BLOOD COUNT 8.1 X10^3/uL (3.6-10.0)
[2025-01-07 06:35] LABS: ALANINE AMINOTRANSFERASE 9 Units/L (12-78); ALBUMIN 3.1 g/dL (3.4-5.0); ALKALINE PHOSPHATASE 82 Units/L (46-116); ASPARTATE AMINO TRANSFERASE 20 Units/L (15-37); BLOOD UREA NITROGEN 11 mg/dL (7-18); CALCIUM 9.4 mg/dL (8.5-10.1); CARBON DIOXIDE 27.3 mmol/L (21-32); CHLORIDE 107 mmol/L (98-107); COR CA(FOR HYPOALB) 10.1 mg/dL (8.5-10.1); COR NA(FOR HYPERGLY) 143 mmol/L (136-145); CREATINE KINASE 45 Units/L (26-192); CREATININE 0.78 mg/dL (0.55-1.02); GLUCOSE 111 mg/dL (65-99); MAGNESIUM 1.5 mg/dL (2.0-2.9); POTASSIUM 3.8 mmol/L (3.5-5.1); SODIUM 143 mmol/L (136-145); TOTAL PROTEIN 7.5 g/dL (6.4-8.2); eGFR NON BLACK RACES > 60 (>60)
[2025-01-07] MEDS ORDERED: CONSULT PHARMACY - POTASSIUM & MAGNESIUM XX SCH (07:00)
--- NOTE | 2025-01-07 07:45 | RAD ---
EXAM:CHEST, PA/LAT ADULTHISTORY:AMS, UTI;COMPARISON:10/03/2021FINDINGS:The cardiomediastinal silhouette is stable.Chronic appearing interstitial changes in the lungs. No acute airspace disease. No pneumothorax or effusion.No acute osseous abnormality.IMPRESSION:No acute cardiopulmonary disease.THIS IS AN ELECTRONICALLY VERIFIED FINAL REPORT01/07/2025 7:41 AM - Electronically signed by Jason Dale MD
[2025-01-07] MEDS ORDERED: ZITHROMAX INJ 500 MG VIAL 500 MG in D5W 250 ML IV 250 ML IV SCH (08:23)
[2025-01-07] MEDS: MAG-OX TAB PO SCH (08:52)
[2025-01-07] MEDS: K-DUR TAB 20 MEQ PO SCH (08:53)
[2025-01-07] MEDS: SINGULAIR TAB 10 MG PO SCH (08:54)
[2025-01-07] MEDS: PriLOSEC PO SCH (08:56)
[2025-01-07] MEDS ORDERED: PATIENT'S HOME MEDICATION (Fluticasone-Umeclidin-Vilanter [Trelegy Ellipta] 100-62.5-25 mc IN SCH (09:00)
[2025-01-07] MEDS: PULMICORT NEB TX 0.5 MG NEB SCH (09:33)
--- NOTE | 2025-01-07 09:57 | CT ---
EXAM:CTA chest with contrast for pulmonary embolusHISTORY:Hypoxia, elevated D-dimerTECHNIQUE:Axial postcontrast images with coronal and sagittal reformats. Three-dimensional maximum intensity projection images were obtained and evaluated. Dose reduction techniques were used with MA/kv adjusted for body size.COMPARISON:10/31/2024FINDINGS:Exami billy is markedly positive for acute pulmonary thromboembolic disease. Thrombus is identified in the distal left main pulmonary artery arterial branch to the left upper lobe, arterial branch to the left lower lobe, multiple left upper and left lower lobe segmental branches. Thrombus is also identified in the arterial branch to the right upper lobe and several segmental branches to the right lower lobe. RV/LV ratio 1.4 indicating right ventricular strain. Examination of the mediastinum demonstrated no evidence for mediastinal masses, enlarged mediastinal or enlarged hilar adenopathy or significant aortic abnormality. Right hemidiaphragm is elevated. No pleural effusions are identified. Those portions of the upper abdominal organs visualized appeared within normal limits to the limitations of early arterial injection timing. No chest wall or axillary abnormality is identified. Examination of the lung walter demonstrated no pulmonary masses, alveolar infiltrates, areas of consolidation, significant peribronchial thickening, or bronchiectasis. No significant noncalcified pulmonary nodules identified.IMPRESSION:Exam markedly positive for bilateral acute pulmonary thromboembolic disease with a heavy clot burden as described above and with evidence for right ventricular strainNo acute pulmonary infiltrates or significant pulmonary nodulesChronic elevation of the right hemidiaphragmTHIS IS AN ELECTRONICALLY VERIFIED FINAL REPORT01/07/2025 9:54 AM - Electronically signed by Jason Dale MD
[2025-01-07] MEDS: ALPRAZOLAM ODT PO PRN (10:29)
[2025-01-07] MEDS: ZITHROMAX TAB 250 MG PO SCH (10:29)
[2025-01-07] MEDS: LOVENOX INJ 40 MG SYR SC SCH (10:29)
[2025-01-07 11:01] LABS: INR 1.26 (0.8-1.3)
[2025-01-07] MEDS: OMNIPAQUE 350 mg/mL 100 mL BTL 100 ML ONE (11:19)
[2025-01-07] MEDS: HEPARIN SODIUM INJ 5000 UNITS IVP ONE (11:21)
[2025-01-07] MEDS: HEPARIN SODIUM IN D5W 25,000 UNITS/500 ML BAG IV PRN (11:22)
--- NOTE | 2025-01-07 12:08 | VAS ---
EXAM:CAROTID USHISTORY:DIZZINESS, TIA, CVD; ; BSA=1.87BSAType=OCCIDENTALCOMPARISON:None available.TECHNIQUE:Multiple ambriz scale, duplex and color flow Doppler images of the right and left carotid arterial system were obtained. The vertebral arterial system was evaluated as well.FINDINGS:Nonocclusive color flow Doppler is seen throughout the right and left carotid arterial system.There is [id number] atherosclerotic plaque formation of the bilateral carotid bulbs and proximal ICAs with associated intimal thickening but without evidence for high-grade stenosis (>70%) or occlusion of the carotid arteries. The right and left vertebral artery demonstrate antegrade flow.There is patent flow and normal duplex waveforms within the right and left external carotid arteries.Peak right ICA velocity: 124 centimeter/seconds.Peak right CCA velocity: 69 centimeter/seconds.Right ICA to CCA ratio: 2.8.Peak left ICA velocity: 84 centimeter/seconds.Peak left CCA velocity: 45 centimeter/seconds.Left ICA to CCA ratio: 2.2.IMPRESSION:No hemodynamically significant carotid artery stenosis is seen.Mild/moderate bilateral CCA and proximal ICA atherosclerosis.Appropriate, antegrade, vertebral arterial flow seen bilaterally.THIS IS AN ELECTRONICALLY VERIFIED FINAL REPORT01/07/2025 12:05 PM - Electronically signed by Bentley Farnsworth MD
--- NOTE | 2025-01-07 12:21 | MRI ---
EXAM:BRAIN W/O CONHISTORY:CONFUSION, TIA;COMPARISON:CT brain 01/06/2025TECHNIQUE:Multiplanar multisequence MRI of the brain was obtained without contrast using standard departmental protocol.FINDINGS:Diffusion sequences show no abnormal signal. No evidence for acute ischemia.Age-related findings include central and cortical atrophy with abnormal signal in the periventricular white matter, most likely the micro-ischemic changes of aging. Otherwise ambriz and white matter have normal differentiation.There is no mass, shift, or hemorrhage. Cerebellar tonsils are at an appropriate level.There is normal signal flow void in the central vessels. No abnormal signal on susceptibility sequences.Minimal mucosal thickening in the right maxillary sinus could be chronic sinusitis. There is no fluid to suggest acute sinusitis. No mastoid effusion.IMPRESSION:1. No acute findings2. Findings suggesting chronic right maxillary sinusitisTHIS IS AN ELECTRONICALLY VERIFIED FINAL REPORT01/07/2025 12:18 PM - Electronically signed by Fracisco Carroll MD
[2025-01-07] MEDS: VALIUM INJ IVP PRN (15:55)
[2025-01-07] MEDS: RESTORIL CAP 15 MG PO PRN (22:44)
[2025-01-08 05:14] LABS: BASOPHILS # (AUTO) 0.1 X10^3/uL (0.0-0.1); LYMPHOCYTES # (AUTO) 2.6 X10^3/uL (1.3-2.9); MONOCYTES # (AUTO) 0.9 x10^3/uL (0.3-0.8); MONOCYTES % (AUTO) 11.1 % (0.0-13.0); WHITE BLOOD COUNT 7.8 X10^3/uL (3.6-10.0)
[2025-01-08 05:20] LABS: BASOPHILS % (AUTO) 1.2 % (0.2-1.0); EOSINOPHILS # (AUTO) 0.2 x10^3/uL (0.0-0.2); EOSINOPHILS % (AUTO) 3.2 % (0.9-2.9); HEMATOCRIT 34.9 % (36.0-47.0); LYMPHOCYTES % (AUTO) 33.2 % (21.0-51.0); MEAN CORPUSCULAR HEMOGLOBIN 28.7 pg (27.0-34.0); MEAN CORPUSCULAR HGB CONC 32.9 g/dL (33.0-35.0); MEAN CORPUSCULAR VOLUME 87.3 fL (80.0-100.0); MEAN PLATELET VOLUME 9.7 fL (7.4-11.0); NEUTROPHILS % (AUTO) 51.3 % (42.0-75.0); PLATELET COUNT 272 X10^3/uL (150.0-450.0); RED CELL DISTRIBUTION WIDTH 14.3 % (11.6-16.5)
[2025-01-08 05:26] LABS: ALANINE AMINOTRANSFERASE < 6 Units/L (12-78); ALBUMIN 2.6 g/dL (3.4-5.0); ALKALINE PHOSPHATASE 67 Units/L (46-116); ASPARTATE AMINO TRANSFERASE 17 Units/L (15-37); BLOOD UREA NITROGEN 8 mg/dL (7-18); CALCIUM 8.5 mg/dL (8.5-10.1); CARBON DIOXIDE 25.9 mmol/L (21-32); CHLORIDE 108 mmol/L (98-107); COR CA(FOR HYPOALB) 9.6 mg/dL (8.5-10.1); GLUCOSE 99 mg/dL (65-99); MAGNESIUM 1.5 mg/dL (2.0-2.9); POTASSIUM 3.3 mmol/L (3.5-5.1); SODIUM 144 mmol/L (136-145); TOTAL PROTEIN 6.2 g/dL (6.4-8.2); eGFR NON BLACK RACES > 60 (>60)
[2025-01-08 05:46] LABS: HEMOGLOBIN 11.5 g/dL (12.0-16.0)
[2025-01-08 05:47] LABS: BAND NEUTROPHILS % 1 % (0-10); PLATELET MORPHOLOGY COMMENT NORMAL (NORMAL)
[2025-01-08] MEDS ORDERED: CONSULT PHARMACY - POTASSIUM & MAGNESIUM XX SCH (06:00)
[2025-01-08] MEDS: HEPARIN SODIUM INJ 5000 UNITS IVP ONE (07:03)
[2025-01-08] MEDS: K-DUR TAB 20 MEQ PO SCH (08:43)
[2025-01-08] MEDS: MAG-OX TAB PO SCH (08:43)
[2025-01-08] MEDS: NS 1,000 ML IV 1,000 ML IV SCH (09:11)
[2025-01-08] MEDS: SEROquel TAB 25 mg PO SCH (10:21)
[2025-01-08] MEDS: COLACE CAP 100 MG PO SCH (20:04)
[2025-01-09] MEDS: VISTARIL PO PRN (02:02)
[2025-01-09 02:51] LABS: BASOPHILS # (AUTO) 0.1 X10^3/uL (0.0-0.1); BASOPHILS % (AUTO) 1.1 % (0.2-1.0); EOSINOPHILS # (AUTO) 0.4 x10^3/uL (0.0-0.2); EOSINOPHILS % (AUTO) 4.6 % (0.9-2.9); HEMOGLOBIN 12.5 g/dL (12.0-16.0); LYMPHOCYTES # (AUTO) 2.6 X10^3/uL (1.3-2.9); LYMPHOCYTES % (AUTO) 32.8 % (21.0-51.0); MEAN CORPUSCULAR HEMOGLOBIN 28.8 pg (27.0-34.0); MEAN CORPUSCULAR HGB CONC 32.8 g/dL (33.0-35.0); MEAN CORPUSCULAR VOLUME 87.7 fL (80.0-100.0); MEAN PLATELET VOLUME 9.2 fL (7.4-11.0); MONOCYTES # (AUTO) 0.8 x10^3/uL (0.3-0.8); MONOCYTES % (AUTO) 10.2 % (0.0-13.0); NEUTROPHILS % (AUTO) 51.3 % (42.0-75.0); PLATELET COUNT 291 X10^3/uL (150.0-450.0); RED BLOOD COUNT 4.33 X10^6/uL (3.5-5.4); RED CELL DISTRIBUTION WIDTH 14.6 % (11.6-16.5); WHITE BLOOD COUNT 7.8 X10^3/uL (3.6-10.0)
[2025-01-09 03:00] LABS: ALANINE AMINOTRANSFERASE 9 Units/L (12-78); ALBUMIN 2.9 g/dL (3.4-5.0); ALKALINE PHOSPHATASE 79 Units/L (46-116); ASPARTATE AMINO TRANSFERASE 21 Units/L (15-37); BLOOD UREA NITROGEN 6 mg/dL (7-18); CALCIUM 9.4 mg/dL (8.5-10.1); CARBON DIOXIDE 28.2 mmol/L (21-32); CHLORIDE 106 mmol/L (98-107); COR CA(FOR HYPOALB) 10.3 mg/dL (8.5-10.1); CREATININE 0.77 mg/dL (0.55-1.02); GLUCOSE 101 mg/dL (65-99); MAGNESIUM 1.6 mg/dL (2.0-2.9); POTASSIUM 3.9 mmol/L (3.5-5.1); SODIUM 143 mmol/L (136-145); eGFR NON BLACK RACES > 60 (>60)
[2025-01-09] MEDS ORDERED: CONSULT PHARMACY - POTASSIUM & MAGNESIUM XX SCH (05:00)
[2025-01-09] MEDS: MAG-OX TAB PO SCH (08:01)
--- NOTE | 2025-01-09 09:47 | NOTE.SOAP ---
Soap Note Note for Day of Date of Exam: 01/09/25 Subjective Data Subjective Data: Patient with a lot of abnormal behaviors and agitation last night. Finally calm down after being wheeled around the unit and family visiting. Urine culture grew out Pseudomonas sensitive to Levaquin. She is still on heparin drip. Vitals and labs overall remaining stable. Patient denies any acute complaints today other than asking for nicotine patch. Objective Data Objective Data: Early female in no acute distress. Sitting up in the bedside chair. Hearing intact to conversation, head NCAT, EOMI, trachea midline. Lung sounds diminished but clear. Heart regular rate and rhythm. Belly is soft with bowel sounds present. Mood and affect are appropriate. Assessment Assessment: 1. Bilateral pulmonary emboli 2. Pseudomonas UTI 3. Nicotine dependence 4. Blood cultures growing gram-positive cocci Plan Plan: Stop Zithromax and Rocephin, start Levaquin IV. Monitor blood cultures. Start nicotine patch. Switch heparin drip to Eliquis 10 mg p.o. twice daily for 7 days.
[2025-01-09] MEDS: NICOTINE PATCH TD SCH (10:14)
[2025-01-09] MEDS: LEVAQUIN PREMIX IV 500 MG 500 MG/100 ML BAG IV SCH (10:15)
[2025-01-09] MEDS: ELIQUIS PO SCH (10:15)
[2025-01-09] MEDS ORDERED: ALPRAZOLAM ODT ONE (10:43)
[2025-01-09] MEDS: ALPRAZOLAM ODT PO PRN (10:50)
[2025-01-09] MEDS ORDERED: FLEXERIL TAB 10 MG ONE (17:01)
[2025-01-09] MEDS: FLEXERIL TAB 10 MG PO PRN (17:01)
[2025-01-09] MEDS ORDERED: ELIQUIS PO SCH (21:00)
[2025-01-10 05:02] LABS: BASOPHILS # (AUTO) 0.2 X10^3/uL (0.0-0.1); BASOPHILS % (AUTO) 2.3 % (0.2-1.0); EOSINOPHILS # (AUTO) 0.5 x10^3/uL (0.0-0.2); EOSINOPHILS % (AUTO) 5.6 % (0.9-2.9); HEMATOCRIT 35.2 % (36.0-47.0); HEMOGLOBIN 11.6 g/dL (12.0-16.0); LYMPHOCYTES # (AUTO) 2.5 X10^3/uL (1.3-2.9); LYMPHOCYTES % (AUTO) 29.7 % (21.0-51.0); MEAN CORPUSCULAR HEMOGLOBIN 28.6 pg (27.0-34.0); MEAN CORPUSCULAR VOLUME 86.8 fL (80.0-100.0); MEAN PLATELET VOLUME 9.7 fL (7.4-11.0); MONOCYTES # (AUTO) 0.6 x10^3/uL (0.3-0.8); MONOCYTES % (AUTO) 7.4 % (0.0-13.0); NEUTROPHILS # (AUTO) 4.5 x10^3/uL (2.2-4.8); PLATELET COUNT 290 X10^3/uL (150.0-450.0); RED BLOOD COUNT 4.05 X10^6/uL (3.5-5.4); RED CELL DISTRIBUTION WIDTH 14.6 % (11.6-16.5); WHITE BLOOD COUNT 8.3 X10^3/uL (3.6-10.0)
[2025-01-10 05:10] LABS: ALANINE AMINOTRANSFERASE 7 Units/L (12-78); ALBUMIN 2.5 g/dL (3.4-5.0); ALKALINE PHOSPHATASE 70 Units/L (46-116); ASPARTATE AMINO TRANSFERASE 16 Units/L (15-37); BLOOD UREA NITROGEN 8 mg/dL (7-18); CALCIUM 9.3 mg/dL (8.5-10.1); CARBON DIOXIDE 29.9 mmol/L (21-32); CHLORIDE 107 mmol/L (98-107); COR CA(FOR HYPOALB) 10.5 mg/dL (8.5-10.1); CREATININE 0.75 mg/dL (0.55-1.02); GLUCOSE 97 mg/dL (65-99); MAGNESIUM 1.8 mg/dL (2.0-2.9); POTASSIUM 3.9 mmol/L (3.5-5.1); SODIUM 143 mmol/L (136-145); TOTAL PROTEIN 6.3 g/dL (6.4-8.2); eGFR NON BLACK RACES > 60 (>60)
[2025-01-10] MEDS: MILK OF MAGNESIA PO PRN (08:09)
[2025-01-10] MEDS: MAG-OX TAB PO SCH (08:09)
--- NOTE | 2025-01-10 15:32 | NOTE.SOAP ---
Soap Note Note for Day of Date of Exam: 01/10/25 Subjective Data Subjective Data: Daily rounds. No acute events overnight. Tolerating Eliquis and increased dose of Seroquel. Vitals overall stable and slept better last night. Patient denies any new complaints today. Objective Data Objective Data: Well-developed, well-nourished, elderly female in no acute distress. Head NCAT. Hearing intact conversation. Anisocoria present. Heart regular rate and rhythm. Lungs clear but diminished. Bowel sounds present. Assessment Assessment: 1. Bilateral pulmonary emboli 2. Pseudomonas UTI and in sputum 3. Nicotine dependence 4. Blood cultures growing gram-positive cocci Plan Plan: No changes today
[2025-01-10] MEDS: CONSULT PHARMACY - POTASSIUM & MAGNESIUM XX SCH (18:24)
[2025-01-11 05:08] LABS: BASOPHILS # (AUTO) 0.1 X10^3/uL (0.0-0.1); BASOPHILS % (AUTO) 1.3 % (0.2-1.0); EOSINOPHILS # (AUTO) 0.3 x10^3/uL (0.0-0.2); EOSINOPHILS % (AUTO) 4.4 % (0.9-2.9); HEMATOCRIT 35.6 % (36.0-47.0); HEMOGLOBIN 11.8 g/dL (12.0-16.0); LYMPHOCYTES # (AUTO) 2.2 X10^3/uL (1.3-2.9); LYMPHOCYTES % (AUTO) 29.6 % (21.0-51.0); MEAN CORPUSCULAR HEMOGLOBIN 28.8 pg (27.0-34.0); MEAN CORPUSCULAR HGB CONC 33.3 g/dL (33.0-35.0); MEAN CORPUSCULAR VOLUME 86.5 fL (80.0-100.0); MEAN PLATELET VOLUME 9.4 fL (7.4-11.0); MONOCYTES # (AUTO) 0.8 x10^3/uL (0.3-0.8); NEUTROPHILS # (AUTO) 3.9 x10^3/uL (2.2-4.8); NEUTROPHILS % (AUTO) 53.7 % (42.0-75.0); PLATELET COUNT 274 X10^3/uL (150.0-450.0); RED BLOOD COUNT 4.12 X10^6/uL (3.5-5.4); RED CELL DISTRIBUTION WIDTH 14.1 % (11.6-16.5); WHITE BLOOD COUNT 7.3 X10^3/uL (3.6-10.0)
[2025-01-11 05:29] LABS: ALANINE AMINOTRANSFERASE 9 Units/L (12-78); ALBUMIN 2.6 g/dL (3.4-5.0); ALKALINE PHOSPHATASE 68 Units/L (46-116); ASPARTATE AMINO TRANSFERASE 17 Units/L (15-37); BLOOD UREA NITROGEN 9 mg/dL (7-18); CALCIUM 9.4 mg/dL (8.5-10.1); CARBON DIOXIDE 30.9 mmol/L (21-32); CHLORIDE 108 mmol/L (98-107); COR CA(FOR HYPOALB) 10.5 mg/dL (8.5-10.1); CREATININE 0.78 mg/dL (0.55-1.02); GLUCOSE 87 mg/dL (65-99); POTASSIUM 3.9 mmol/L (3.5-5.1); SODIUM 145 mmol/L (136-145); TOTAL PROTEIN 6.4 g/dL (6.4-8.2); eGFR NON BLACK RACES > 60 (>60)
--- NOTE | 2025-01-11 09:09 | VAS ---
EXAMINATION:LOWER EXT VENOUS, BILATERALHISTORY:HX OF DVT/PE, NAYELI EDEMA; ; BSA=1.87BSAType=OCCIDENTAL.COMPARISON:10/31/2024 br.br.br of the venous system was performed.FINDINGS:The bilateral common femoral vein(s), superficial femoral vein(s), right popliteal vein(s) demonstrate normal compressibility, augmentation, respiratory variation and color flow.Partial compressibility with nonocclusive thrombus in the left popliteal vein suggesting chronic DVTThe posterior tibial vein(s) are patent.There is no sonographic evidence for Chappell's cyst. .IMPRESSION:Chronic DVT in the left popliteal vein.No sonographic evidence for acute DVT on the right.THIS IS AN ELECTRONICALLY VERIFIED FINAL REPORT01/11/2025 9:06 AM - Electronically signed by Chris Guerra MD
--- NOTE | 2025-01-11 13:31 | RAD ---
EXAM:CHEST, 1 VIEWHISTORY:CHF, PNEUMONIA; GB, HYSTER, CSECT, TONSILS, HTNCOMPARISON:Prior study or studies were utilized for comparison during interpretation with the most relevant datedTECHNIQUE:CHEST, 1 VIEWFINDINGS:Chest:Lines and tubes: NoneMediastinum: Cardiac and mediastinal shadow is within normal limits for size and contour.Pulmonary vessels: Pulmonary vasculature is prominent.Lung walter: Right hemidiaphragm elevation. Interstitial markings and hyperinflation of the left lung with diaphragmatic flattening.Pleura: No effusion. No pneumothorax.Bones and soft tissues: No acute osseous or soft tissue abnormality.IMPRESSION:1. Findings suggest heart failure2. Stigmata of COPD3. No definite pneumoniaTHIS IS AN ELECTRONICALLY VERIFIED FINAL REPORT01/11/2025 1:18 PM - Electronically signed by Jerome Ignacio MD
[2025-01-11] MEDS: HALDOL INJ IVP PRN (16:24)
[2025-01-12 04:57] LABS: BASOPHILS # (AUTO) 0.1 X10^3/uL (0.0-0.1); BASOPHILS % (AUTO) 0.9 % (0.2-1.0); EOSINOPHILS # (AUTO) 0.3 x10^3/uL (0.0-0.2); EOSINOPHILS % (AUTO) 4.2 % (0.9-2.9); HEMATOCRIT 37.9 % (36.0-47.0); HEMOGLOBIN 12.4 g/dL (12.0-16.0); LYMPHOCYTES # (AUTO) 1.8 X10^3/uL (1.3-2.9); LYMPHOCYTES % (AUTO) 24.1 % (21.0-51.0); MEAN CORPUSCULAR HEMOGLOBIN 28.6 pg (27.0-34.0); MEAN CORPUSCULAR HGB CONC 32.6 g/dL (33.0-35.0); MEAN CORPUSCULAR VOLUME 87.6 fL (80.0-100.0); MEAN PLATELET VOLUME 9.1 fL (7.4-11.0); MONOCYTES # (AUTO) 0.7 x10^3/uL (0.3-0.8); MONOCYTES % (AUTO) 9.1 % (0.0-13.0); NEUTROPHILS # (AUTO) 4.7 x10^3/uL (2.2-4.8); NEUTROPHILS % (AUTO) 61.7 % (42.0-75.0); PLATELET COUNT 278 X10^3/uL (150.0-450.0); RED BLOOD COUNT 4.33 X10^6/uL (3.5-5.4); RED CELL DISTRIBUTION WIDTH 14.3 % (11.6-16.5); WHITE BLOOD COUNT 7.6 X10^3/uL (3.6-10.0)
[2025-01-12 05:05] LABS: ALANINE AMINOTRANSFERASE 9 Units/L (12-78); ALBUMIN 2.8 g/dL (3.4-5.0); ALKALINE PHOSPHATASE 72 Units/L (46-116); ASPARTATE AMINO TRANSFERASE 21 Units/L (15-37); BLOOD UREA NITROGEN 10 mg/dL (7-18); CALCIUM 9.6 mg/dL (8.5-10.1); CARBON DIOXIDE 30.5 mmol/L (21-32); CHLORIDE 108 mmol/L (98-107); COR CA(FOR HYPOALB) 10.6 mg/dL (8.5-10.1); CREATININE 0.79 mg/dL (0.55-1.02); GLUCOSE 92 mg/dL (65-99); POTASSIUM 3.8 mmol/L (3.5-5.1); SODIUM 145 mmol/L (136-145); TOTAL PROTEIN 6.7 g/dL (6.4-8.2); eGFR NON BLACK RACES > 60 (>60)
[2025-01-12] MEDS ORDERED: CONSULT PHARMACY - POTASSIUM & MAGNESIUM XX SCH ×2 (06:00→08:00)
[2025-01-12] MEDS: MAG-OX TAB PO SCH (08:41)
[2025-01-12] MEDS: K-DUR TAB 20 MEQ PO SCH (08:42)
[2025-01-12 14:27] VITALS: BP 154/65; PULSE 68; RESP 21; TEMP 98.8; O2SAT 99
== END 2025-01-12 14:25 | DRG 176 ==
LOC: MED/SURG → OBSVTOIN 12:11 → ICU 01-07 10:39
PROVIDERS: ADMIT Internal Medicine; ATTEND Internal Medicine
DX: M51.360 Other intervertebral disc degeneration, lumbar region with discogenic back pain only; R79.1 Abnormal coagulation profile; Z60.8 Other problems related to social environment; Z74.1 Need for assistance with personal care; N39.0 Urinary tract infection, site not specified; E03.8 Other specified hypothyroidism; B96.5 Pseudomonas (aeruginosa) (mallei) (pseudomallei) as the cause of diseases classified elsewhere; R42 Dizziness and giddiness; F05 Delirium due to known physiological condition; R70.0 Elevated erythrocyte sedimentation rate; A04.5 Campylobacter enteritis; I82.532 Chronic embolism and thrombosis of left popliteal vein; K92.1 Melena; F01.A Vascular dementia, mild; E83.42 Hypomagnesemia; R53.1 Weakness; R41.82 Altered mental status, unspecified; J44.89 Other specified chronic obstructive pulmonary disease; Z65.8 Other specified problems related to psychosocial circumstances; I26.94 Multiple subsegmental thrombotic pulmonary emboli without acute cor pulmonale; I10 Essential (primary) hypertension; R78.81 Bacteremia; M50.30 Other cervical disc degeneration, unspecified cervical region; Z72.0 Tobacco use; R26.89 Other abnormalities of gait and mobility; R79.82 Elevated C-reactive protein (CRP); R06.02 Shortness of breath; Z29.89 Encounter for other specified prophylactic measures; F13.10 Sedative, hypnotic or anxiolytic abuse, uncomplicated